=== PATIENT | female | born 1990 | race Caucasian/White ===

== ENCOUNTER 2020-08-06 21:47 | Emergency (ER) | payer MEDICAID, SELFPAY ==
[2020-08-06 21:47] VITALS: BP 135/76; PULSE 68; RESP 16; TEMP 35.9; O2SAT 97
[2020-08-06 21:48] VITALS: BP 135/76; PULSE 68; RESP 16; TEMP 35.9; O2SAT 97; BMI 22.1
--- NOTE | 2020-08-06 22:17 | ED.DCSUM_ITS ---
- ER Visit Summary Date of Service: 08/06/20 Chief Complaint: Atraumatic left-sided neck pain History of Present Illness: The patient is a 30 F No seen past medical history. She has atraumatic left-sided neck pain. This is occurred in the last 4 days. She did not know of any type of trauma she had. No falls or injuries. No prior history of neck pain. No prior neck surgery. At times it does slightly radiate to her left shoulder. There is no weakness or numbness. She denies any fever or chills. It is worse with rotating her neck to the left. Physical Examination: Young female no acute distress. Vital signs stable afebrile. HEENT exam unremarkable. Neck she is left paraspinal soft tissue tenderness over the trapezius. Also to the soft tissue between her shoulder blade and spine. She is able to flex and extend her neck. There is no meningismus. There is no lymphadenopathy. The spine itself is nontender. Pain is worse when she rotates her head to the left. There is no signs of trauma. No redness or warmth. No bruising. Lungs are clear equal and symmetrical bilaterally. Heart is regular rhythm. Chest wall nontender. Abdomen soft nontender. She is moving all 4 extremities. They are neurovascularly intact. She has equal symmetrical devulcanizer tender strength bilaterally. Dorsi plantar flexion intact. Back otherwise is nontender. Neurologically she is awake and alert with no focal motor or sensory deficits. She has normal range of motion of both arms and shoulders. Test Results: None Emergency Department Course and Treatment: Patient appears to have musculoskeletal neck pain such as myofascial strain with spasm. There is reproducibly tender. It does not appear to be an acute disc at this time. She and I did discuss that however. She will continue on her qdgv-hma-yvzdoea anti- inflammatories. 5 sourness. She will be given a prescription for Skelaxin. Treatment Plan: Skelaxin 4 times daily. NSAIDs. Hot shower, warm bath and massage. Follow-up if not improving. Disposition: dc Impression: Neck pain secondary to myofascial strain and spasm This note was generated with [employer] Intation software. It may contain incorrect words, spelling, and punctuation that were not noted in review of the chart prior to signing ED Disposition - Plan for ED Patient: Referrals: Care Physician,No Primary [Primary Care Provider] -
--- NOTE | 2020-08-06 22:21 | ED.DEP ---
ED Disposition - Plan for ED Patient: Disposition: Home or Assisted Living Instructions: ED Muscle Spasm Prescriptions: Metaxalone [Skelaxin] 800 mg PO 4X/DAY 7 Days #20 tab Prescription Printed Referrals: Santana Pena MD [STAFF PHYSICIAN] - 1 Week if not improving Additional Instructions: Hot shower, warm bath, whirlpool,, the size and anti-inflammatories. Skelaxin 3-4 times a day. Works as a muscle relaxant. Should start seeing results in 48 to 96 hours. Follow-up if not improving in 1 week. If develop weakness in your left arm return.
[2020-08-06] MEDS: Metaxalone 800 MG Tablet PO (22:51)
== END 2020-08-06 22:52 | disposition home or self-care (01) ==
PROVIDERS: Emergency Provider Emergency Medicine
DX: M54.2 Cervicalgia (principal); R25.2 Cramp and spasm
CPT/HCPCS: 99283

== ENCOUNTER 2021-09-25 23:07 | Emergency (ER) | payer MEDICAID, SELFPAY ==
[2021-09-25 23:09] VITALS: BP 138/85; PULSE 59; RESP 16; TEMP 36.1; O2SAT 99; BMI 25.8
--- NOTE | 2021-09-25 23:17 | RAD_ITS ---
HISTORY: atraumatic right chest pain EXAMINATION/TECHNIQUE: XR Chest 2 Views: 2 views COMPARISON: None FINDINGS: LINES/DEVICES: None. LUNGS: No pulmonary consolidation, mass, or edema. No pleural effusion or pneumothorax. MEDIASTINUM AND CARDIOVASCULAR STRUCTURES: Cardiac silhouette not enlarged. Central airways and mediastinal contour are unremarkable. BONES AND SOFT TISSUES: No acute bony abnormalities. RAD/Chest PA and Lateral IMPRESSION: No radiographic evidence of acute cardiopulmonary disease. at 2346 Reported and signed by: Ash Ortega MD Electronically Signed: Ash Ortega MD at 23:45 EST ,
--- NOTE | 2021-09-25 23:17 | ED.VIS.CHEST ---
HPI History of Present Illness Chief Complaint: Chest Other Detail of Chief Complaint: Right chest wall pain for a month. Informant: patient Onset/Context/Timing Onset: Month(s) Activity at onset: gradual Timing: Continuous Quality: Positive for Aching and Dull Location: Right Chest Current Severity: Mild Maximum Severity: Mild Worsened By: Movement of Torso; Not Worsened By Exertion, Eating, Palpation, Breathing and Coughing Relieved By: Remaining Still Associated Symptoms: Negative for Nausea, Vomiting, Diaphoresis, Dyspnea, Cough and Fever Narrative Narrative: 31-year-old female past medical history of anxiety. States she has had right rib cage pain for about a month. Denies any fall injury or trauma. No history of pneumothorax. No history of DVT or PE or family history of clots. Denies any recent travel, surgery or immobilization. No leg pain or swelling. No hemoptysis. She is not on any control pills. States the pains been ongoing for about a month. This started as a small area on her right chest wall. She denies fever chills or cough she denies shortness of breath. It is worse with movement. Saw her primary care physician was treated with naproxen without any significant relief. She has had no imaging. Prior Similar Symptoms: No Recent Illness/Hospitalization: No CVD Risk Factors: Negative for Hypertension, Diabetes, Hypercholesterolemia, Family History 1' </=55 and Smoking PE Risk Factors: Negative for Recent Travel/Surgery, Recent Immobilization, Prior DVT or PE, Cancer and OCP + Smoking + >/=35 TAD Risk Factors: Negative for Marfan's Syndrome and Hypertension [facility] Medical History (Updated 09/25/21 @ 23:[address] Ariel Upton MD) Anxiety Home Medications buspirone 7.5 mg PO TID 09/25/21 [History Last Taken Unknown] prednisone 40 mg PO DAILY 7 Days #14 tab 09/25/21 [Rx Last Taken Unknown] sertraline 100 mg PO DAILY 09/25/21 [History Last Taken Unknown] Allergy/AdvReac Type Severity Reaction Status Date / Time watermelon Allergy Hives Verified 09/25/21 23:08 Surgical History no surgical history Social History Smoking Status: Current every day smoker tobacco type: cigarettes ROS ROS ED ROS Narrative Denies any recent illness. Review of Systems ROS Unobtainable: Denies due to encephalopathy Constitutional Constitutional ED: Denies fever(s) Eyes Eyes: Denies none ENT ENT ED: Denies ear pain, rhinorrhea or sore throat Cardiovascular Cardiovascular: Reports as per HPI and chest pain Respiratory/Chest Respiratory/Chest: Denies cough, dyspnea or sputum Gastrointestinal Gastrointestinal: Denies abdominal pain, diarrhea, nausea or vomiting Genitourinary Genitourinary ED: Denies dysuria or hematuria Musculoskeletal Musculoskeletal: Denies arthralgias or myalgias Integumentary Denies abscess or rash Neurologic Neurologic: Denies headache(s) or weakness Psychiatric Psychiatric: Denies anxiety or depression Endocrine Endocrinology: Denies polydipsia or polyuria Hematologic/Lymphatic Hematologic/Lymphatic: Denies easy bleeding or easy bruising Allergic/Immunologic Allergic/Immunologic ED: Denies mouth swelling or urticaria EXAM Physical Exam Narrative Exam Narrative: 31-year-old female no acute distress. Vital signs stable afebrile. Pulse ox 9 9% on room air no hypoxia. HEENT exam unremarkable. Moist with memories. Neck nontender no JVD. No lymphadenopathy. Lungs clear to auscultation bilaterally. Heart regular rate and rhythm rate about 60 no murmur. Right chest wall is tender to palpation. Worse with movement. There is no crepitance or subcu air. No bruising. No bony abnormalities. Abdomen soft nontender normal bowel sounds no peritoneal signs. No right upper quadrant tenderness. Back nontender. Moving all 4 extremities. Calves are nontender without edema or cords. Neurologically she is awake and alert with no focal motor deficits. Const Vital Signs: 09/25/21 23:09 09/25/21 23:20 Temperature 97 F L Temperature Source Temporal Pulse Rate 59 L Respiratory Rate 16 Respiratory Pattern Normal Blood Pressure 138/85 H Blood Pressure Mean 102 Pulse Ox 99 Oxygen Delivery Method Room Air Positive well nourished and well developed; Negative for obese, cachectic, contractures or unkempt General Appearance ED: well developed and NAD; Negative for unkempt, cachectic, contractures or pallor Nutritional Appearance: Negative for cachectic or obese HEENT Reports moist mucous membranes normocephalic and atraumatic; Negative for trauma or tenderness Eyes PERRL and EOMs intact bilaterally General Eye ED: Negative for pale conjunctiva or scleral icterus Neck no lymphadenopathy, supple and no JVD General: Negative for tenderness Chest Wall inspection of chest normal and palpation of chest normal Chest: Negative for tenderness Resp normal respiratory effort and clear to auscultation bilaterally Resp Narrative: Right rib cage tenderness. No signs of trauma. No crepitance or subcu air. No bruising. Effort and Inspection: respiratory distress Auscultation: Negative for rales, rhonchi or wheezes Cardio regular rate, regular rhythm, S1 normal heart sound, S2 normal heart sound and no murmurs Rate: Negative for bradycardia or tachycardic Rhythm: Negative for abnormal rhythm GI normal to inspection, nondistended, normoactive bowel sounds, soft to palpation, non-tender, non-distended and no masses; Negative for hepatosplenomegaly Auscultation: Negative for hyperactive bowel sounds Back/Spine no CVA tenderness and no thoracic nor lumbar tenderness General Back: Negative for CVA tenderness Cervical Spine: Negative for cervical spine tenderness Extremity normal to inspection General Extremety ED: Negative for edema, pulses abnormal or tenderness General Extremity: Negative for edema or pulses abnormal Neuro oriented x3, CN's II-XII intact bilaterally and no sensory deficits noted Sensorium / Orientation: awake, alert, oriented to person, oriented to place and oriented to time; Negative for confused, lethargic or stuporous Motor Exam: strength 5/5 throughout; Negative for general weakness or strength abnormal Psych mental status grossly normal Appearance: Negative for unkempt Attitude: No agitated Mood & Affect: Negative for depressed or tearful Skin no rashes or lesions noted and no wounds General Skin Exam: Negative for jaundice or pallor Rashes: No rashes noted Trauma: Negative for abrasion MDM MDM MDM Narrative Medical decision making narrative: 31-year-old female with right chest wall pain for approximately a month. Exam is consistent reproducible pain. Chest x-ray AP and lateral being obtained. She has no risk factors for pulmonary emboli. Otherwise exam unremarkable. Repeat exam at 11:37 PM unchanged. I went over the x-ray with the patient. She will be discharged home on prednisone and follow-up if not improving. Radiography Chest X-Ray - ED: 2 View, Read by ED Physician, Heart, Lungs, Mediastinum, Bony Structures, No Acute Disease and Right Infiltrate Diagnostic Testing: Chest x-ray, 2 views, AP and lateral interpreted by myself shows no acute abnormality. Normal cardiac silhouette. Normal lung bell. No bony abnormalities. No infiltrates. No pneumothorax. Discharge Plan Triage Chief Complaint: Chest Other ED Provider: Ariel Upton Dx/Rx/DC Orders Clinical Impression: Chest wall muscle strain Instructions: ED Strain Chest Wall Prescriptions: New prednisone 20 mg tablet 40 mg PO DAILY 7 Days Qty: 14 RF: 0 No Action sertraline 100 mg tablet 100 mg PO DAILY RF: 0 buspirone 7.5 mg tablet 7.5 mg PO TID RF: 0 Primary Care Provider: Care Physician,No Primary Referrals: Care Physician,No Primary [Primary Care Provider] - Activity Restrictions/Additional Instructions: Prednisone daily. If you have inflammation of your chest wall that should improve.. Ice to your chest wall. Follow-up with your doctor if not improving and return if worse. Your chest x-ray exam was normal Disposition Disposition: Home, Self Care
[2021-09-25] MEDS: predniSONE 20 MG Tablet 40 MG PO (23:52)
== END 2021-09-25 23:52 | disposition home or self-care (01) ==
LOC: ED 23:46
PROVIDERS: Emergency Provider Emergency Medicine; Visit Provider Emergency Medicine
DX: S29.011A Strain of muscle and tendon of front wall of thorax, initial encounter (principal); F17.210 Nicotine dependence, cigarettes, uncomplicated; F41.9 Anxiety disorder, unspecified
CPT/HCPCS: 71046; 99283

== ENCOUNTER 2022-07-09 18:45 | Outpatient (CLI) | payer MEDICAID, SELFPAY ==
[2022-07-09 18:55] VITALS: BMI 34.2
[2022-07-09 18:58] VITALS: BP 126/68; PULSE 83; PULSE 95; TEMP 36.4; O2SAT 99
[2022-07-09 19:46] LABS: Color, Urine Yellow (Yellow); Glucose, Dipstick Normal (Normal); Ketone-Dipstick Negative (Negative); Leukocyte Esterase-Dipstick Negative /ul (Negative); Nitrite-Dipstick Negative (Negative); Occult Blood-Urine Negative /ul (Negative); Protein-Dipstick Negative (Negative); Urine Bilirubin Dipstick Negative (Negative); Urine Clarity Clear (Clear); Urine Urobilinogen Normal (Normal); Urine pH 6.5 (5.0 - 8.0)
[2022-07-09] MEDS: LACTATED RINGERS 500 ML 999 ML IV (20:20)
--- NOTE | 2022-07-09 20:36 | OB.TRI.NOTE ---
HPI - General HPI Narrative JAIDEN POOL, is a 31 F at 35 weeks gestation who presents to triage with contractions that started earlier this evening. Patient denies any loss of fluid or vaginal bleeding. Positive movement. No history of PTL. Maternal Data Information EDVIN Calculator Estimated Delivery Date Method Current WG Current Estimate 08/13/22 Manual 35w 0d PFSH PFSH Medical History (Updated 07/09/22 @ 20:52 by Mayra Espinal CNM) Anxiety Home Medications sertraline 100 mg tablet 100 mg PO DAILY anxiety 09/25/21 [History Last Taken 07/09/22 10:00] ondansetron 4 mg PO/SL PRN PRN Nausea 07/09/22 [History Last Taken 07/08/22 09:00] vit 30-jiau-imjcf-dha 1 tab PO/SL DAILY 07/09/22 [History Last Taken 07/09/22 10:00] Allergy/AdvReac Type Severity Reaction Status Date / Time watermelon Allergy Mild Hives Verified 07/09/22 19:05 cheese whiz Allergy Rash Uncoded 07/09/22 19:40 Social History Smoking Status: Current every day smoker tobacco type: cigarettes ROS Eyes Eyes: Denies blurry vision Cardiovascular Cardiovascular: Reports none; Denies chest pain at rest, chest pain with activity or dizziness Respiratory/Chest Respiratory/Chest: Denies cough or dyspnea Gastrointestinal Gastrointestinal: Reports none and other; Denies diarrhea or vomiting Genitourinary Genitourinary: Denies dysuria Musculoskeletal Musculoskeletal: Reports none Integumentary Integumentary: Reports none; Denies rash Neurologic Neurologic: Denies dizziness, headache(s) or other visual disturbances Psychiatric Psychiatric: Reports none Physical Exam Const alert and no apparent distress General Appearance: cooperative Orientation / Consciousness: awake Exam Limitations: no limitations HEENT normocephalic Eyes General Eye: normal appearance of both eyes Neck full ROM Chest inspection of chest normal Resp normal respiratory effort and normal air movement Effort and Inspection: symmetric chest movement Auscultation: clear to auscultation bilaterally Cardio regular rate GI soft to palpation, non-tender and non-distended Inspection: and other Back/Spine normal ROM Extremity full ROM, normal capillary refill and no calf tenderness Skin no rashes or lesions noted Neuro oriented x3 and CN's II-XII intact bilaterally Psych mental status grossly normal NST FHR Rate Baby A Baseline: 125 Variability:: Moderate Accelerations:: 15 x 15 Decelerations:: None NST Reactive:: Yes FHR Category:: Category I Uterine Activity:: TOCO reading 2-4 minutes, palpate mild and relaxed in between Assessment & Plan (1) 35 weeks gestation of : (2) Uterine contractions: (3) Anxiety: PLAN: Plan NST reactive CE- FT/ Thick/ Posterior- unchanged from initial exam UA- negative IV fluids- 500 cc bolus given- Patient stated feeling better and contractions have spaced out labor precautions reviewed D/C home with follow up in office Dr. Pope notified
[2022-07-09 20:44] VITALS: PULSE 64; O2SAT 97
[2022-07-09] MEDS: Lactated Ringers 1,000 ML 250 ML IV (20:52)
== END 2022-07-09 22:15 | disposition home or self-care (01) ==
LOC: WPOUT 18:48 → WP 18:48
PROVIDERS: Visit Provider Advanced Practice Midwife
DX: O47.03 False labor before 37 completed weeks of gestation, third trimester (principal); F17.210 Nicotine dependence, cigarettes, uncomplicated; F41.9 Anxiety disorder, unspecified; O99.343 Other mental disorders complicating pregnancy, third trimester; O99.333 Smoking (tobacco) complicating pregnancy, third trimester; Z3A.35 35 weeks gestation of pregnancy
CPT/HCPCS: 96360; 59025; 59050; 81002; 99218; J7120; G0378

== ENCOUNTER 2022-07-17 16:30 | Outpatient (CLI) | payer MEDICAID, SELFPAY ==
[2022-07-17 16:43] VITALS: PULSE 118; O2SAT 97
[2022-07-17 16:44] VITALS: TEMP 36.6; O2SAT 97
[2022-07-17 16:45] VITALS: BP 123/63; PULSE 85
[2022-07-17 16:55] VITALS: BMI 34.5
--- NOTE | 2022-07-18 00:02 | OB.TRI.NOTE ---
HPI - General HPI Narrative JAIDEN POOL, is a 32 F who presents Maternal Data Information EDVIN Calculator Estimated Delivery Date Method Current WG Current Estimate 08/13/22 Manual 36w 2d Final EDVIN: 08/13/22 Gestational age: 36 2/7 PFSH [facility] [place] Medical History (Updated 07/18/22 @ 00:[address] Sasha Pope MD) Anxiety Home Medications sertraline 100 mg tablet 200 mg PO DAILY anxiety 09/25/21 [History Last Taken 07/17/22 08:00] ondansetron 4 mg PO/SL PRN PRN Nausea 07/09/22 [History Last Taken 07/08/22 09:00] vit 19-ycve-lxrxr-dha 1 tab PO/SL DAILY 07/09/22 [History Last Taken 07/17/22 08:00] Allergy/AdvReac Type Severity Reaction Status Date / Time watermelon Allergy Mild Hives Verified 07/09/22 19:05 amoxicillin AdvReac Mild Diarrhea Verified 07/17/22 16:58 cheese whiz Allergy Rash Uncoded 07/09/22 19:40 Social History Smoking Status: Current every day smoker tobacco type: cigarettes NST FHR Rate Baby A Baseline: 135 Variability:: Moderate Accelerations:: 15 x 15 Decelerations:: None NST Reactive:: Yes FHR Category:: Category I Uterine Activity:: irreg ctxs Assessment & Plan (1) Threatened labor: PLAN: No evidence of active labor. Reactive nonstress test. Follow-up in the office or return as needed. (2) 36 weeks gestation of :
== END 2022-07-17 17:40 | disposition home or self-care (01) ==
LOC: WPOUT 16:36 → WP 16:36
PROVIDERS: Visit Provider Advanced Practice Midwife
DX: O47.03 False labor before 37 completed weeks of gestation, third trimester (principal); O99.343 Other mental disorders complicating pregnancy, third trimester; O99.333 Smoking (tobacco) complicating pregnancy, third trimester; F41.9 Anxiety disorder, unspecified; F17.210 Nicotine dependence, cigarettes, uncomplicated; Z3A.36 36 weeks gestation of pregnancy
CPT/HCPCS: 59025; 59050; 99218; G0378

== ENCOUNTER 2022-08-07 06:50 | Inpatient (IN) | payer MEDICAID, SELFPAY ==
[2022-08-07] VITALS (50 sets, daily range): BP systolic 106–135; BP diastolic 53–80; PULSE 65–110; RESP 18; TEMP 36.2–36.5; O2SAT 90–100; BMI 35.4
[2022-08-07] MEDS: Lactated Ringers 1,000 ML 50 ML IV (07:40)
[2022-08-07 08:22] LABS: Absolute Lymphocyte Count 1.22 X10^3/uL (0.83-4.51); Absolute Neutrophil Count 8.2 X10^3/uL (2.0-7.7); Basophil# 0.03 X10^3/uL; Basophil% 0.3 % (0-1); Eosinophil# 0.04 X10^3/uL; Eosinophils% 0.4 % (0-5); Hematocrit 35.2 % (37-47); Hemoglobin 11.8 g/dL (12.0-15.0); Lymphocyte # 1.22 X10^3/ul (0.83-4.51); Lymphocyte % 11.6 % (19-41); Mean Corp Hgb Conc 33.5 g/dL (32-36); Mean Corpuscular Hgb 29.8 pg (27.0-32.0); Mean Corpuscular Volume 88.9 fL (81-99); Mean Platelet Vol. 9.2 fl (6.2-12.0); Monocyte# 0.82 X10^3/uL; Monocyte% 7.8 % (0-10); NRBC Flagged by Analyzer 0 % (0-5); Neutrophil # 8.24 X10^3/uL (2.7-7.7); Neutrophil % 78.3 % (47-70); Platelet Count 236 K/mm3 (150-450); RBC Distribution Width CV 13.3 % (11.6-14.6); RBC Distribution Width SD 43.8 fl (35.1-43.9); Red Blood Count 3.96 M/mm3 (4.2-5.4); White Blood Count 10.5 K/mm3 (4.4-11.0)
[2022-08-07] MEDS: Oxytocin 15 Units/NS 250ml 15 UNITS/250 ML IV.SOLN 2 UNITS IV (09:15)
[2022-08-07] MEDS: LACTATED RINGERS 500 ML 999 ML IV ×2 (09:55→19:15)
[2022-08-07] MEDS: fentaNYL-bupivacaine (epidural) 100 ML BAG EPIDURAL ×3 (10:13→19:10)
--- NOTE | 2022-08-07 13:09 | HP.PCM.OB_ITS ---
HPI - General General Date of Admission: 08/07/22 Date of Service: 08/07/22 Chief Complaint: induction of labor HPI Narrative JAIDEN POOL, is a 32 2 para 1 with a EDC of 08/13/2022 presents for induction of labor. Estimated weight by ultrasound last week is less than 4500 g. has been complicated to date by an abdominal cyst noted on the anatomy scan the fetus. Follow-up ultrasound of the fetus was normal and t he gallbladder was visualized and was normal. is also been complicated by unstable lie. Fetus was vertex then breech then vertex again. She was seen in the office on 08/06/2022 the fetus was vertex and she was scheduled for induction of labor. Maternal Data Information EDVIN Calculator 2 Estimated Delivery Date Method Current WG Current Estimate 08/13/22 Manual 39w 1d Final EDVIN: 08/13/22 Gestational age: 39 1/7 [facility] Medical History (Updated 08/07/22 @ 13:[address] Sasha Pope MD) Anxiety Home Medications sertraline 100 mg tablet 200 mg PO DAILY anxiety 09/25/21 [History Last Taken 08/06/22 08:00] ondansetron 4 mg PO/SL PRN PRN Nausea 07/09/22 [History Last Taken 07/08/22 09:00] vit 78-fnxe-xsukk-dha 1 tab PO/SL DAILY 07/09/22 [History Last Taken 08/07/22 06:00] hydroxyzine HCl 25 mg tablet 25 mg PO TID PRN anxiety 08/07/22 [History Last Taken Unknown] Allergy/AdvReac Type Severity Reaction Status Date / Time watermelon Allergy Mild Hives Verified 07/09/22 19:05 amoxicillin AdvReac Mild Diarrhea Verified 07/17/22 16:58 cheese whiz Allergy Rash Uncoded 07/09/22 19:40 Social History Smoking Status: Light Smoker (<10/day) History Elective abortions Hx Para 1 Spontaneous abortions Hx # Term Pregnancies Ectopic pregnancies Hx # Pregnancies Multiple births # of living children ROS Constitutional Constitutional: Denies fatigue, fever(s) or malaise Eyes Eyes: Denies change in vision ENT HEENT: Denies dizziness or headache(s) Cardiovascular Cardiovascular: Denies chest pain, dyspnea or lightheadedness Respiratory/Chest Respiratory/Chest: Denies cough or dyspnea Gastrointestinal Gastrointestinal: Denies change in bowel habits Genitourinary Genitourinary: Denies burning urination or genital lesions Integumentary Integumentary: Denies rash Neurologic Neurologic: Denies confusion, dizziness, headache(s), numbness or weakness Vital Signs Vital Signs Vital Signs: 08/07/22 07:30 08/07/22 07:30 08/07/22 09:36 Temperature Temperature Source Pulse Rate 100 Blood Pressure 122/71 H 128/63 H BP Systolic 122 128 BP Diastolic 71 63 Pulse Ox 08/07/22 09:36 08/07/22 09:36 08/07/22 09:36 Temperature Temperature Source Temporal Pulse Rate 74 Blood Pressure BP Systolic BP Diastolic Pulse Ox 98 08/07/22 09:36 08/07/22 10:08 08/07/22 10:08 Temperature 97.3 F L Temperature Source Pulse Rate 80 Blood Pressure BP Systolic BP Diastolic Pulse Ox 98 08/07/22 10:08 08/07/22 10:11 08/07/22 10:11 Temperature Temperature Source Pulse Rate 82 Blood Pressure 128/63 H 135/71 H BP Systolic 128 135 BP Diastolic 63 71 Pulse Ox 08/07/22 10:13 08/07/22 10:13 08/07/22 10:21 Temperature Temperature Source Pulse Rate 75 80 Blood Pressure BP Systolic BP Diastolic Pulse Ox 99 08/07/22 10:21 08/07/22 10:21 08/07/22 10:21 Temperature Temperature Source Pulse Rate 82 Blood Pressure 112/66 BP Systolic 112 BP Diastolic 66 Pulse Ox 98 08/07/22 10:26 08/07/22 10:26 08/07/22 10:26 Temperature Temperature Source Pulse Rate 93 Blood Pressure 119/67 BP Systolic 119 BP Diastolic 67 Pulse Ox 98 08/07/22 10:31 08/07/22 10:31 08/07/22 10:31 Temperature Temperature Source Pulse Rate 86 Blood Pressure 112/67 BP Systolic 112 BP Diastolic 67 Pulse Ox 97 08/07/22 10:31 08/07/22 10:36 08/07/22 10:36 Temperature Temperature Source Pulse Rate 77 91 Blood Pressure BP Systolic BP Diastolic Pulse Ox 98 08/07/22 10:36 08/07/22 10:36 08/07/22 10:41 Temperature Temperature Source Pulse Rate 82 Blood Pressure 111/67 111/64 BP Systolic 111 111 BP Diastolic 67 64 Pulse Ox 08/07/22 10:41 08/07/22 10:41 08/07/22 10:47 Temperature Temperature Source Pulse Rate 83 Blood Pressure 111/75 BP Systolic 111 BP Diastolic 75 Pulse Ox 98 08/07/22 10:47 08/07/22 11:18 08/07/22 11:18 Temperature Temperature Source Pulse Rate 93 73 Blood Pressure 120/69 BP Systolic 120 BP Diastolic 69 Pulse Ox 08/07/22 11:48 08/07/22 11:48 08/07/22 12:37 Temperature Temperature Source Pulse Rate 78 Blood Pressure 121/73 H 117/62 BP Systolic 121 117 BP Diastolic 73 62 Pulse Ox 08/07/22 12:37 08/07/22 12:37 08/07/22 12:37 Temperature Temperature Source Temporal Pulse Rate 65 Blood Pressure BP Systolic BP Diastolic Pulse Ox 98 08/07/22 12:37 Temperature 97.7 F L Temperature Source Pulse Rate Blood Pressure BP Systolic BP Diastolic Pulse Ox Weight Weight: 96.7 kg Body Mass Index (BMI) 35.4 Physical Exam Const alert and no apparent distress General Appearance: cooperative HEENT normocephalic Resp normal respiratory effort Cardio regular rate GI soft to palpation GI Narrative: gravid, nontender, appropriate for gestational age Extremity no calf tenderness General Extremity: edema Skin no wounds Rashes: No rashes noted Psych activity/motor behavior normal Labs Labs Labs: Blood Type O POSITIVE Antibody Screen NEGATIVE Hct 35.2 % (37-47) L Hgb 11.8 g/dL (12.0-15.0) L Assessment & Plan (1) 39 weeks gestation of : PLAN: Multigravida with unstable lie. Risk-benefit and alternatives to induction labor him discussed with the patient and her questions were answered to her satisfaction she desires to proceed. Brief ultrasound performed this morning which confirms vertex. When I examined the patient cervix this morning she was 1-1/2 cm 50% effaced and -3 station. Artificial rupture membranes was performed because I could palpate the skull. Moderate amount of clear fluid returned in the skull settled down against the cervix. Estimated weight weight is less than 4500 g by ultrasound and clinically and pelvis clinically adequate to expect vaginal delivery. May have routine pain relief measures. We will proceed with Pitocin and artificial rupture membranes i nduction.
[2022-08-07] MEDS: Lactated Ringers 1,000 ML 200 ML IV ×2 (13:55→19:05)
[2022-08-07] MEDS: Amnioinfusion- 0.9% NS 1,000 ML IV.SOLN. 1000 ML INTRA-UTER (18:45)
--- NOTE | 2022-08-07 21:12 | OP.PCM_ITS ---
Assessment & Plan (1) 39 weeks gestation of : (2) Prolonged heart deceleration: (3) Vacuum extractor delivery, delivered: (4) Delivery outcome of liveborn infant: Maternal Data Information EDVIN Calculator Estimated Delivery Date Method Current WG Current Estimate 08/13/22 Manual 39w 1d Final EDVIN: 08/13/22 Gestational age: 39 1/7 Vaginal Delivery Maternal Presentation Maternal Presentation: Medically Indicated Induction (unstable lie) Type of Induction: Pitocin and Amniotomy Operative Information Date of Procedure: 08/07/22 Pre-Operative Diagnosis: prolonged decelerations Post-Operative Diagnosis: same Surgery / Procedure Performed: Vacuum Assisted Vaginal Delivery (low) Type of Anesthesia: Epidural Anesthesiologist: Aleida Nieves Special Medications: none Drain: Gross to straight drain Estimated Blood Loss: 300 Time of Delivery: 20:56 Findings Description of Procedure: Patient had prolonged decelerations. She had a prolonged when that we cannot get to recovery in the room with resuscitative measures. I was present. Patient was taken to the operating room. When arrived to the operating room the heart tones recovered to the 110s to 130s. She continued to have decelerations to the 60s and 70s during contractions. We are able to get it recovered to 90s to 100s in between. When she arrived in the operating room as we are getting her on the operating table I checked her and she was in anterior lip. On the next contraction I asked the patient to push and she was able to reduce the anterior lip and she was complete and +2. She then pushed with 2 more contractions as we are getting her set up for vaginal delivery. Head was then plus 3 out of 5 station and position was RUMA. I discussed with the patient if heart tones continue to have prolonged decelerations option of vacuum- assisted vaginal delivery and patient consented. The vacuum was placed on the flexion point and I pulled with 1 contraction with 1 pop-off to +5 station. Patient pushed spontaneously with the next contraction and she was labia. heart tones were again in the 70s. The vacuum was replaced and on the next contraction I pulled to and remove the vacuum without another pop-off. A male infant was delivered RUMA over an intact perineum. A tight nuchal cord was reduced. The remainder the was delivered with maternal pushing and gentle traction only in less than 15 seconds. The Pitocin infusion was initiated for active management of the third stage. The cord was clamped and cut rather immediately because the had good tone and some respiratory effort but was not completely vigorous. The infant was attended to by the awaiting team and hospice liaison. The placenta was delivered spontaneously and intact. The cervix and vagina were intact. The first-degree vaginal lacerations bilaterally were superficial and repaired with 3-0 Vicryl suture in a running standard fashion. Sponge and needle counts were correct. A vaginal sweep was completed by me. Presentation: Vertex and RUMA Amniotic Membrane Rupture Type: Artificial Amniotic Fluid Description: Clear Placental Delivery Description: Spontaneous Placenta Disposition: [facility] Cord Vessel Description: 3 Vessels Cord Entanglement: Around neck x 1, tight Nuchal Cord Compression: With compression Cord Gases: ABG and VBG A Gender: Male (Lane) Delayed Cord Clamping: No Post Vaginal Delivery Medications Given After Delivery: IV Pitocin Episiotomy Description: None Laceration: 1st degree (vaginal) Complication Complications: None
[2022-08-07] MEDS: Oxytocin 15 Units/NS 250ml 15 UNITS/250 ML IV.SOLN 83 UNITS IV (21:24)
[2022-08-08] VITALS (8 sets, daily range): BP systolic 119–135; BP diastolic 60–66; PULSE 67–81; RESP 16–18; TEMP 36.1–37.1; O2SAT 96–97
[2022-08-08] MEDS: Acetaminophen 500 MG Tablet 1000 MG PO (02:23)
[2022-08-08] MEDS: Ibuprofen 600 MG Tablet PO ×3 (06:00→17:40)
--- NOTE | 2022-08-08 08:25 | PCM.PN.OB ---
Subjective Subjective Patient seen at bedside. Feeling good. Ambulating and voiding without difficulty. with minimal support. Denies any pain. Desires discharge home tomorrow morning. Objective Data Objective Data Vital Signs: Vital Signs Temp Pulse Resp BP Pulse Ox O2 Del Method O2 Flow Rate 97.6 F L 72 16 119/60 97 Room Air 10 08/08/22 08:11 08/08/22 08:12 08/08/22 08:11 08/08/22 08:11 08/08/22 08:12 08/08/22 08:11 08/07/22 20:00 Oxygen Flow Rate (L/min) 10 Oxygen Delivery Method Room Air Weight: 213 lb 2.992 oz Body Mass Index (BMI) 35.4 Intake & Output: Intake and Output for Last 24 Hours 08/06/22 08/07/22 08/08/22 23:59 23:59 23:59 Intake Total 4175.83 / 4175.83 250 / 250 Output Total 1700 / 1700 100 / 100 Balance 2475.83 / 2475.83 150 / 150 Lab / Micro Data Result Diagrams: 08/07/22 08:00 Labs: Laboratory Results - last 24 hr 08/07/22 08:00: Blood Type O POSITIVE, Antibody Screen NEGATIVE ROS Eyes Eyes: Denies blurry vision, change in vision or spots in vision ENT HEENT: Denies dizziness or headache(s) Cardiovascular Cardiovascular: Denies abdominal pain, chest pain or dyspnea Respiratory/Chest Respiratory/Chest: Denies cough, dyspnea, shortness of breath at rest or shortness of breath with exertion Gastrointestinal Gastrointestinal: Denies abdominal pain, diarrhea or vomiting Genitourinary Genitourinary: Denies change in urinary stream, difficulty urinating or dysuria Musculoskeletal Musculoskeletal: Reports none Integumentary Integumentary: Denies rash Neurologic Neurologic: Denies dizziness, headache(s), memory loss or weakness Physical Exam Const alert and no apparent distress General Appearance: cooperative and comfortable Exam Limitations: no limitations HEENT normocephalic Eyes General Eye: normal appearance of both eyes Neck full ROM General: normal visual inspection Chest Chest: symmetrical chest wall rise Resp normal respiratory effort and normal air movement Effort and Inspection: symmetric chest movement Auscultation: clear to auscultation bilaterally Cardio regular rate and regular rhythm GI normal to inspection, nondistended, normoactive bowel sounds Back/Spine normal ROM Extremity full ROM and no calf tenderness General Extremity: normal exam except as noted Skin no rashes or lesions noted Neuro CN's II-XII intact bilaterally Psych mental status grossly normal Assessment & Plan (1) Delivery outcome of liveborn : (2) Vacuum extractor delivery, delivered: (3) Care and examination of lactating mother: (4) Laceration, obstetrical, first degree: PLAN: Plan PPD 1 Vacuum assisted delivery Routine care Pain control support Anticipate discharge home tomorrow
[2022-08-08] MEDS: Sertraline 100 MG Tablet 200 MG PO (10:04)
[2022-08-09 02:56] VITALS: BP 124/79; PULSE 80
[2022-08-09 02:57] VITALS: BP 124/79; PULSE 80; RESP 18
[2022-08-09] MEDS: Ibuprofen 600 MG Tablet PO (03:03)
[2022-08-09 08:48] VITALS: BP 128/64; PULSE 67
[2022-08-09 08:50] VITALS: BP 124/64; PULSE 67; RESP 16; TEMP 36.4
--- NOTE | 2022-08-09 09:01 | PCM.PN.OB ---
Subjective Subjective No complaintd Objective Data Objective Data Vital Signs: Vital Signs Temp Pulse Resp BP Pulse Ox O2 Del Method O2 Flow Rate 97.6 F L 67 16 124/64 H 97 Room Air 10 08/09/22 08:50 08/09/22 08:50 08/09/22 08:50 08/09/22 08:50 08/08/22 08:12 08/09/22 08:50 08/07/22 20:00 Oxygen Flow Rate (L/min) 10 Oxygen Delivery Method Room Air Weight: 213 lb 2.992 oz Body Mass Index (BMI) 35.4 Intake & Output: Intake and Output for Last 24 Hours 08/07/22 08/08/22 08/09/22 23:59 23:59 23:59 Intake Total 4175.83 / 4175.83 250 / 250 Output Total 1700 / 1700 100 / 100 Balance 2475.83 / 2475.83 150 / 150 Lab / Micro Data Result Diagrams: 08/07/22 08:00 Physical Exam Const alert, oriented x3 and no apparent distress HEENT normocephalic GI soft to palpation, non-tender and non-distended GI Narrative: fundus firm, mid & below umbilicus Extremity normal to inspection and no calf tenderness Assessment & Plan (1) Vacuum extractor delivery, delivered: COMMENT: PPD#1 PLAN: Plan D/c home
--- NOTE | 2022-08-09 09:04 | DCINST_ITS ---
Discharge Instructions Diet Discharge Diet: No restrictions Activity Discharge Activity: May Shower May resume sexual activity in: 6 weeks Weight Bearing Status: Weight bearing as tolerated Dressing / Incision Call your doctor if you observe: Fever of 101 or Higher, Coldness, Increased Pain, Change in Color, Inability to urinate, Inability to have a bowel movement, Using more than 1 pad per hour, Shortness of breath, Dizziness, Fainting spells, Chest pain, Increased palpitations (irregular heartbeat), Calf discomfort and Uncontrolled pain Follow Up Care Please Follow Up With: Sasha Pope MD When: Follow up in 2 and 6 weeks for visits. Test Results: Test results from this visit will be discussed in further detail at your follow- up appointment, if applicable. Discharge Plan Admission Admit Date/Time: 08/07/22 06:50 Primary Reason for Your Visit: Vaginal delivery Attending Provider: Sasha Pope Primary Care Provider: TIERRA HOOD Discharge Orders/Prescriptions Prescriptions: New acetaminophen 500 mg Tablet 1,000 mg PO Q6H PRN PRN (Reason: Pain 1-10 Or Fever) Qty: 0 0RF ibuprofen 600 mg Tablet 600 mg PO Q6H PRN PRN (Reason: Pain Score 1-3) Qty: 0 0RF Continued sertraline 100 mg tablet 200 mg PO DAILY Label Comments: TAKE 1 TABLET BY MOUTH ONCE DAILY ondansetron tablet 4 mg PO/SL PRN PRN (Reason: Nausea) vit 19-tgbz-orvyh-dha tablet 1 tab PO/SL DAILY hydroxyzine HCl 25 mg Tablet 25 mg PO TID PRN (Reason: anxiety) Referrals / Follow Up: TIERRA HOOD [Other] Disposition Disposition (needs filled in before D/C Order can be placed): Home, Self Care
[2022-08-09] MEDS: Sertraline 100 MG Tablet 200 MG PO (10:04)
== END 2022-08-09 11:30 | disposition home or self-care (01) | DRG 560 ==
PROVIDERS: Admitting Provider Obstetrics & Gynecology; Referring Provider Obstetrics & Gynecology; Visit Provider Obstetrics & Gynecology
DX: O76 Abnormality in fetal heart rate and rhythm complicating labor and delivery (principal); Z37.0 Single live birth; F17.200 Nicotine dependence, unspecified, uncomplicated; O69.2XX0 Labor and delivery complicated by other cord entanglement, with compression, not applicable or unspecified; O70.0 First degree perineal laceration during delivery; O99.334 Smoking (tobacco) complicating childbirth; Z3A.39 39 weeks gestation of pregnancy; O32.0XX0 Maternal care for unstable lie, not applicable or unspecified
CPT/HCPCS: 59025; 59050; 85025; 86850; 86900; 86901; 99218; J7030; J7120; G0378

== ENCOUNTER 2023-12-11 12:25 | Outpatient (CLI) | payer MEDICAID, SELFPAY ==
[2023-12-11 12:33] VITALS: RESP 20; TEMP 36.7; O2SAT 98
[2023-12-11 12:41] VITALS: BMI 29.7
--- NOTE | 2023-12-11 12:57 | US_ITS ---
INDICATION: ovaries/appendix 27.4 week -- RLQ/LLQ EXAMINATION: US Abdomen Limited (quadrant) TECHNIQUE: Graham-scale and color Doppler imaging was performed of the ovaries and right lower abdominal quadrant.. COMPARISON: None. Findings: RIGHT OVARY: Measures 3.8 x 2.9 x 2.6 cm. Normal. LEFT OVARY: Measures 3.7 x 2.8 x 2.7 cm. Normal. RLQ: Non-visualization of the appendix. US/Abdomen Limited IMPRESSION: Normal ovaries. Non-visualization of the appendix. Electronically Signed: Nnamdi Aj MD at 16:55 EDT ,
--- NOTE | 2023-12-11 13:02 | US_ITS ---
PROCEDURE: RENAL ULTRASOUND - COMPLETE REASON FOR EXAM: Female, 33 years old. Right lower quadrant pain TECHNIQUE: Ultrasound evaluation of the bilateral kidneys was performed with real-time ultrasonography and static grayscale imaging. COMPARISON: None. FINDINGS: RIGHT KIDNEY: Normal location of the right kidney which is normal in size. The right kidney measures 12.3 x 4.7 x 5 cm. There is a normal cortex of the right kidney. The renal cortex measures 1.4 cm. There is no right renal mass or cyst. There are no right renal calculi. There is moderate hydronephrosis of the right kidney. DISTAL RIGHT URETER: There is non-visualization of the distal right ureter. There is no demonstrated right ureterovesical junction calculus. There is a visualized right ureteral jet. LEFT KIDNEY: Normal location of the left kidney which is normal in size. The left kidney measures 11 x 4 x 4.8 cm. There is a normal cortex of the left kidney. The renal cortex measures 1.5 cm. There is no left renal mass or cyst. There are no left renal calculi. There is no left hydronephrosis. DISTAL LEFT URETER: There is non-visualization of the distal left ureter. There is no demonstrated left ureterovesical junction calculus. There is a visualized left ureteral jet. BLADDER: The distended urinary bladder has a volume of 651 ml. There is a normal wall thickness of the distended urinary bladder. There is no demonstrated mass within the urinary bladder. There is no demonstrated bladder calculi. US/Kidney and Bladder IMPRESSION: Moderate right hydronephrosis which may or may not be related to . Electronically Signed: Raymond Cedeno MD at 15:49 EDT ,
[2023-12-11] MEDS: 0.9% Saline Lock 10 ML Syringe IV (13:25)
[2023-12-11 13:43] LABS: Absolute Lymphocyte Count 1.53 X10^3/uL (0.83-4.51); Absolute Neutrophil Count 6.6 X10^3/uL (2.0-7.7); Basophil# 0.02 X10^3/uL; Basophil% 0.2 % (0-1); Eosinophil# 0.05 X10^3/uL; Eosinophils% 0.6 % (0-5); Hematocrit 37.1 % (37-47); Hemoglobin 13.1 g/dL (12.0-15.0); Lymphocyte # 1.53 X10^3/ul (0.83-4.51); Lymphocyte % 17.4 % (19-41); Mean Corp Hgb Conc 35.3 g/dL (32-36); Mean Corpuscular Hgb 31.6 pg (27.0-32.0); Mean Corpuscular Volume 89.6 fL (81-99); Mean Platelet Vol. 9.2 fl (6.2-12.0); Monocyte# 0.59 X10^3/uL; Monocyte% 6.7 % (0-10); NRBC Flagged by Analyzer 0 % (0-5); Neutrophil # 6.57 X10^3/uL (2.7-7.7); Neutrophil % 74.6 % (47-70); Platelet Count 194 K/mm3 (150-450); RBC Distribution Width CV 13.2 % (11.6-14.6); RBC Distribution Width SD 43.4 fl (35.1-43.9); Red Blood Count 4.14 M/mm3 (4.2-5.4); White Blood Count 8.8 K/mm3 (4.4-11.0)
[2023-12-11 13:44] LABS: Color, Urine Yellow (Yellow); Glucose, Dipstick Normal (Normal); Ketone-Dipstick Negative (Negative); Leukocyte Esterase-Dipstick 25 /ul (Negative); Nitrite-Dipstick Negative (Negative); Occult Blood-Urine Negative /ul (Negative); Protein-Dipstick 15 mg/dl (Negative); Specific Gravity, Urine 1.015 (1.002-1.030); Urine Bilirubin Dipstick Negative (Negative); Urine Clarity Sl. Cloudy (Clear); Urine Urobilinogen Normal (Normal); Urine pH 6.5 (5.0 - 8.0)
[2023-12-11 13:53] LABS: Bacteria 2+ /hpf (None Seen); Mucous, Urine RARE /hpf (<or=2+); Red Blood Cells-Urine 0-5 SEEN /hpf (0-5); Squamous Epithelial Cells - UA 5-10 SEEN /hpf (5-10); White Blood Cells 0-5 SEEN /hpf (0-5)
[2023-12-11 16:44] VITALS: BP 116/60; PULSE 62; RESP 18; TEMP 36.7
--- NOTE | 2023-12-11 19:59 | OB.TRI.NOTE ---
HPI - General General Date of Admission: 12/11/23 Date of Service: 12/11/23 Chief Complaint: right abdominal pain HPI Narrative JAIDEN POOL, is a 33 F who presents right sided abdominal pain. Denies LOF, bleeding or contractions. No back or flank pain. No trauma. Tylenol and a warm shower helped yesterday but is not helping today. No urinary symptoms. Reviewed renal and abdominal ultrasound. Normal CBC. Urine sent for culture Maternal Data Information Final EDVIN: 03/07/24 Gestational age: 27+4 PFSH PFSH Medical History Anxiety Home Medications sertraline 100 mg tablet 200 mg PO DAILY anxiety 09/25/21 [History Last Taken 12/10/23 21:00 100 mg] ondansetron 4 mg PO/SL PRN PRN Nausea 07/09/22 [History Last Taken 12/11/23 06:00 4] vit 43-fryx-dvoqp-dha 1 tab PO/SL DAILY 07/09/22 [History Last Taken 08/07/22 06:00] acetaminophen 500 mg tablet 1,000 mg (2 x 500 mg) PO Q6H PRN PRN Pain 1-10 Or Fever #0 tabs 08/09/22 [Rx Last Taken 12/11/23 10:00 1,000 mg] Allergy/AdvReac Type Severity Reaction Status Date / Time watermelon Allergy Mild Hives Verified 12/11/23 12:55 cheese Allergy Food Verified 12/11/23 12:55 Allergy amoxicillin AdvReac Mild Diarrhea Verified 12/11/23 12:55 Social History Smoking Status: Light Smoker (<10/day) History Elective abortions Hx Para 1 Spontaneous abortions Hx # Term Pregnancies Ectopic pregnancies Hx # Pregnancies Multiple births # of living children NST FHR Rate Baby A Baseline: 135 Variability:: Moderate Accelerations:: 15 x 15 Decelerations:: None NST Reactive:: Yes FHR Category:: Category I Uterine Activity:: quiet Assessment & Plan (1) Abdominal pain affecting : PLAN: Moderate hydronephrosis on right side. No stones present. N urinary symptoms. Appendix could not be visualized and ovary is normal. No FHR abnormalities . No contractions. Patient requested discharge while final u/s was pending. Appointment scheduled in office tomorrow morning for follow up (2) with 27 completed weeks gestation:
== END 2023-12-11 17:05 | disposition home or self-care (01) ==
LOC: WPOUT 12:35 → WP 12:36
PROVIDERS: Referring Provider Obstetrics & Gynecology; Visit Provider Obstetrics & Gynecology
DX: O99.891 Other specified diseases and conditions complicating pregnancy (principal); R10.9 Unspecified abdominal pain; N13.30 Unspecified hydronephrosis; Z3A.27 27 weeks gestation of pregnancy; O99.332 Smoking (tobacco) complicating pregnancy, second trimester; F17.210 Nicotine dependence, cigarettes, uncomplicated; O99.342 Other mental disorders complicating pregnancy, second trimester; F41.9 Anxiety disorder, unspecified
CPT/HCPCS: 36415; 59025; 59050; 76705; 76770; 81001; 85025; 87086; 87088; 99221; A4216; G0378

== ENCOUNTER 2024-02-25 08:24 | Outpatient (CLI) | payer MEDICAID, SELFPAY ==
--- NOTE | 2024-02-25 12:21 | OB.TRI.NOTE ---
HPI - General General Date of Service: 02/25/24 HPI Narrative JAIDEN POOL, is a 33 F who presents with ctxs. Maternal Data Information Final EDVIN: 03/07/24 Gestational age: 38&3 PFSH PFSH Medical History Anxiety Home Medications ?Medication ?Instructions ?Recorded ?Last Taken ?Type ondansetron 4 mg PO/SL PRN PRN Nausea 07/09/22 02/23/24 10:00 History 4 MG vit 15-bmoi-aagtp-dha 1 tab PO/SL DAILY 07/09/22 08/07/22 06:00 History acetaminophen 500 mg tablet 1,000 mg (2 x 500 mg) PO Q6H PRN 08/09/22 12/11/23 10:00 Rx PRN Pain 1-10 Or Fever #0 tabs 1,000 mg escitalopram oxalate 10 mg tablet 10 mg PO DAILY 02/25/24 02/24/24 10:00 History (Lexapro) 10 mg hydroxyzine pamoate 25 mg capsule mg 02/25/24 02/24/24 10:00 History 25 mg Allergy/AdvReac Type Severity Reaction Status Date / Time watermelon Allergy Mild Hives Verified 02/25/24 10:15 cheese Allergy Food Verified 02/25/24 10:15 Allergy amoxicillin AdvReac Mild Diarrhea Verified 02/25/24 10:15 Social History Smoking Status: Light Smoker (<10/day) History Elective abortions Hx Para 1 Spontaneous abortions Hx # Term Pregnancies Ectopic pregnancies Hx # Pregnancies Multiple births # of living children NST FHR Rate Baby A Baseline: 125 Variability:: Moderate Accelerations:: 15 x 15 Decelerations:: Variable Uterine Activity:: Irregular Assessment & Plan (1) False labor: PLAN: Reactive NST
== END 2024-02-25 11:34 | disposition home or self-care (01) ==
LOC: WPOUT 08:33 → WP 09:09
PROVIDERS: Referring Provider Obstetrics & Gynecology; Visit Provider Obstetrics & Gynecology
DX: O47.9 False labor, unspecified (principal); O99.330 Smoking (tobacco) complicating pregnancy, unspecified trimester; F17.200 Nicotine dependence, unspecified, uncomplicated; Z3A.00 Weeks of gestation of pregnancy not specified
CPT/HCPCS: 59025; 59050 ×2; G0378 ×2; 99221

== ENCOUNTER 2024-02-26 21:47 | Inpatient (IN) | payer MEDICAID, SELFPAY ==
[2024-02-26] VITALS (21 sets, daily range): BP systolic 122–173; BP diastolic 63–100; PULSE 47–96; RESP 16–18; TEMP 36.6–36.8; O2SAT 95–99; BMI 31.9
[2024-02-26] MEDS: Lactated Ringers 1,000 ML 999 ML IV (21:50)
--- NOTE | 2024-02-26 21:50 | PCM.HP.OB ---
HPI - General General Date of Admission: 02/26/24 HPI Narrative JAIDEN KELLY, is a 33 F who presents in spontaneous, active labor Maternal Data Information EDVIN Calculator Estimated Delivery Date Method Current WG Current Estimate 03/07/24 Manual 38w 4d PFSH PFSH Medical History Anxiety Home Medications ?Medication ?Instructions ?Recorded ?Last Taken ?Type ondansetron 4 mg PO/SL PRN PRN Nausea 07/09/22 02/23/24 10:00 History 4 MG acetaminophen 500 mg tablet 1,000 mg (2 x 500 mg) PO Q6H PRN 08/09/22 12/11/23 10:00 Rx PRN Pain 1-10 Or Fever #0 tabs 1,000 mg escitalopram oxalate 10 mg tablet 10 mg PO DAILY anxiety 02/25/24 02/26/24 09:00 History (Lexapro) hydroxyzine pamoate 25 mg capsule 25 mg anxiety 02/25/24 02/26/24 09:00 History Allergy/AdvReac Type Severity Reaction Status Date / Time watermelon Allergy Mild Hives Verified 02/26/24 21:51 cheese Allergy Food Verified 02/26/24 21:51 Allergy amoxicillin AdvReac Mild Diarrhea Verified 02/26/24 21:51 Social History Smoking Status: Light Smoker (<10/day) History Elective abortions Hx Para 1 Spontaneous abortions Hx # Term Pregnancies Ectopic pregnancies Hx # Pregnancies Multiple births # of living children ROS Eyes Eyes: Denies blurry vision, change in vision or spots in vision ENT HEENT: Denies dizziness or headache(s) Cardiovascular Cardiovascular: Denies abdominal pain, chest pain or dyspnea Respiratory/Chest Respiratory/Chest: Denies cough, dyspnea, shortness of breath at rest or shortness of breath with exertion Gastrointestinal Gastrointestinal: Denies abdominal pain, diarrhea or vomiting Genitourinary Genitourinary: Denies change in urinary stream, difficulty urinating or dysuria Musculoskeletal Musculoskeletal: Reports none Integumentary Integumentary: Denies rash Neurologic Neurologic: Denies dizziness, headache(s), memory loss or weakness Psychiatric Psychiatric: Reports none Vital Signs Vital Signs Vital Signs: Weight Weight: 199 lb Body Mass Index (BMI) 31.9 Physical Exam Const alert and no apparent distress General Appearance: cooperative and comfortable Exam Limitations: no limitations HEENT normocephalic Eyes General Eye: normal appearance of both eyes Neck full ROM General: normal visual inspection Chest Chest: symmetrical chest wall rise Resp normal respiratory effort and normal air movement Effort and Inspection: symmetric chest movement Auscultation: clear to auscultation bilaterally Cardio regular rate and regular rhythm GI normal to inspection, nondistended, normoactive bowel sounds Manual OB Exam: dilated 7-8, effaced 80 and station 0 Back/Spine normal ROM Extremity full ROM and no calf tenderness General Extremity: normal exam except as noted Skin no rashes or lesions noted Neuro CN's II-XII intact bilaterally Psych mental status grossly normal Labs Labs Labs: Blood Type O POSITIVE Antibody Screen NEGATIVE Hct 37.1 % (37-47) Hgb 13.1 g/dL (12.0-15.0) Rhogam given: No GBS negative Assessment & Plan (1) Tobacco use complicating : (2) Anxiety: (3) Anxiety and depression: (4) Spontaneous onset of labor: (5) Active labor at term: (6) 38 weeks gestation of : PLAN: Plan CE 7-8cm 80/0 Admit to labor and delivery GBS negative Routine labs Pain medications/epidural when indicated Anticipate Dr. Clayton notified of admission and is collaborating physician
[2024-02-26 22:07] LABS: Absolute Lymphocyte Count 1.32 X10^3/uL (0.83-4.51); Basophil# 0.04 X10^3/uL; Basophil% 0.3 % (0-1); Eosinophil# 0.02 X10^3/uL; Eosinophils% 0.1 % (0-5); Hematocrit 37.7 % (37-47); Hemoglobin 13.1 g/dL (12.0-15.0); Lymphocyte # 1.32 X10^3/ul (0.83-4.51); Lymphocyte % 9.1 % (19-41); Mean Corp Hgb Conc 34.7 g/dL (32-36); Mean Corpuscular Hgb 30.9 pg (27.0-32.0); Mean Corpuscular Volume 88.9 fL (81-99); Mean Platelet Vol. 9.3 fl (6.2-12.0); Monocyte# 0.89 X10^3/uL; Monocyte% 6.2 % (0-10); NRBC Flagged by Analyzer 0 % (0-5); Neutrophil # 12.04 X10^3/uL (2.7-7.7); Neutrophil % 83.5 % (47-70); Platelet Count 202 K/mm3 (150-450); RBC Distribution Width CV 13.2 % (11.6-14.6); RBC Distribution Width SD 43.3 fl (35.1-43.9); Red Blood Count 4.24 M/mm3 (4.2-5.4); White Blood Count 14.4 K/mm3 (4.4-11.0)
[2024-02-26] MEDS: Lactated Ringers 1,000 ML 200 ML IV (22:51)
[2024-02-26] MEDS: fentaNYL-bupivacaine (epidural) 100 ML BAG EPIDURAL (22:53)
[2024-02-26] MEDS: Oxytocin 15 Units/NS 250ml 15 UNITS/250 ML IV.SOLN 334 UNITS IV (23:23)
--- NOTE | 2024-02-26 23:49 | OP.PCM_ITS ---
Assessment & Plan (1) Precipitous delivery: (2) (spontaneous vaginal delivery): (3) True knot in cord: (4) Tobacco use complicating : (5) Anxiety: (6) Anxiety and depression: (7) Laceration, obstetrical, first degree: Maternal Data Information EDVIN Calculator Estimated Delivery Date Method Current WG Current Estimate 03/07/24 Manual 38w 5d Vaginal Delivery Maternal Presentation Maternal Presentation: Active Labor and Spontaneous Rupture of Membranes Maternal Presentation: that presents in spontaneous, active labor. Operative Information Date of Procedure: 02/26/24 Pre-Operative Diagnosis: Term gestation, Spontaneous onset of labor, SROM Post-Operative Diagnosis: , live male Surgery / Procedure Performed: Spontaneous Vaginal Delivery Type of Anesthesia: Epidural Estimated Blood Loss: 150 Time of Delivery: 23:19 Findings Description of Procedure: Patient quickly progressed to complete dilation. Comfortable with epidural but feeling pressure. With minimal maternal effort, head delivered followed by posterior shoulder and remainder of body without downward traction. Infant placed on maternal abdomen and was attended to by nursing. FOB assisted with delivery of infant body and placing infant on maternal abdomen. 's color was pink but poor tone. 3 vessel cord clamped and cut and infant handed off to nursing. True knot noted in cord. Cord blood collected. Pitocin IV started for active management of the third stage of labor. Placenta delivered spontaneously and intact. Fundus firm 2 below U. Small first degree laceration repaired and hemostasis obtained. EBL 150 cc . [employer] Work[employer] currently at [facility]. Presentation: Vertex Amniotic Membrane Rupture Type: Spontaneous Time of Membrane Rupture: 2308 Amniotic Fluid Description: Clear Placental Delivery Description: Spontaneous Placenta Disposition: [facility] Cord Vessel Description: 3 Vessels (True Knot in cord) Cord Entanglement: None A Gender: Male (1 minute): 7 (5 minute): 7 Delayed Cord Clamping: No Post Vaginal Delivery Medications Given After Delivery: IV Pitocin Episiotomy Description: None Laceration: 1st degree Complication Complications: None
[2024-02-27] VITALS (18 sets, daily range): BP systolic 101–132; BP diastolic 59–77; PULSE 57–106; RESP 16; TEMP 36.4–36.8; O2SAT 88–99
[2024-02-27] MEDS: Oxytocin 15 Units/NS 250ml 15 UNITS/250 ML IV.SOLN 83 UNITS IV (00:10)
[2024-02-27] MEDS: Naproxen 500 MG Tablet PO ×2 (03:22→12:29)
[2024-02-27] MEDS: Acetaminophen 500 MG Tablet 1000 MG PO ×2 (08:55→23:49)
--- NOTE | 2024-02-27 11:14 | PCM.PN.OB ---
Subjective Subjective Doing well per patient and nursing staff. Ambulating and taking PO without difficulty. Voiding and passing flatus. Pain controlled. Bottlefeeding. Denies headache, visual changes, chest pain, shortness of breath, leg pain or increased bleeding. Lochia normal. Objective Data Objective Data Vital Signs: Vital Signs Temp Pulse Resp BP Pulse Ox O2 Del Method 98.3 F 67 16 101/65 97 Room Air 02/27/24 10:17 02/27/24 10:17 02/27/24 10:17 02/27/24 10:17 02/27/24 10:17 02/27/24 10:17 Oxygen Delivery Method Room Air Weight: 199 lb Body Mass Index (BMI) 31.9 Intake & Output: Intake and Output for Last 24 Hours 02/25/24 02/26/24 02/27/24 23:59 23:59 23:59 Intake Total 1106.67 / 1106.67 500 / 500 Output Total 350 / 350 Balance 756.67 / 756.67 500 / 500 Lab / Micro Data 02/26/24 21:50 Labs: Laboratory Results - last 24 hr 02/26/24 21:50: WBC 14.4 H, RBC 4.24, Hgb 13.1, Hct 37.7, MCV 88.9, MCH 30.9, MCHC 34.7, RDW Std Deviation 43.3, RDW Coeff of Ty 13.2, Plt Count 202, MPV 9.3, Immature Gran % (Auto) 0.800, Neut % (Auto) 83.5 H, Lymph % (Auto) 9.1 L, [place] % (Auto) 6.2, Eos % (Auto) 0.1, Baso % (Auto) 0.3, Absolute Neuts (auto) 12.0 H, Absolute Lymphs (auto) 1.32, Nucleated RBC % 0, Syphilis Total Ab Cancelled, Blood Type O POSITIVE, Antibody Screen NEGATIVE ROS Constitutional Constitutional: Reports systems reviewed and no addt'l complaints, except as documented; Denies headache(s) Eyes Eyes: Denies acute decrease in peripheral vision, blurry vision or change in vision ENT HEENT: Reports systems reviewed and no addt'l complaints, except as documented Cardiovascular Cardiovascular: Denies chest pain or dizziness Respiratory/Chest Respiratory/Chest: Denies cough, dyspnea, dyspnea on exertion, shortness of breath at rest or shortness of breath with exertion Gastrointestinal Gastrointestinal: Denies abdominal pain, diarrhea, nausea or vomiting Genitourinary Genitourinary: Denies abdominal discomfort Musculoskeletal Musculoskeletal: Denies limited range of motion Integumentary Integumentary: Reports systems reviewed and no addt'l complaints, except as documented Neurologic Neurologic: Reports systems reviewed and no addt'l complaints, except as documented Psychiatric Psychiatric: Reports systems reviewed and no addt'l complaints, except as documented Endocrine Endocrinology: Reports systems reviewed and no addt'l complaints, except as documented Hematologic/Lymphatic Hematologic/Lymphatic: Reports systems reviewed and no addt'l complaints, except as documented Allergic/Immunologic Allergic/Immunologic: Reports systems reviewed and no addt'l complaints, except as documented Physical Exam Const alert and oriented x3 General Appearance: cooperative Orientation / Consciousness: awake, oriented to person, oriented to place and oriented to time Exam Limitations: no limitations HEENT normocephalic Head and Scalp: normal to inspection, normocephalic and atraumatic Face and Sinus: normal facial exam Eyes General Eye: normal appearance of both eyes Neck full ROM Chest Chest: symmetrical chest wall rise Resp normal respiratory effort and normal air movement Auscultation: clear to auscultation bilaterally Cardio regular rate, regular rhythm, S1 normal heart sound, S2 normal heart sound, no murmurs, no rub, no gallops and no clicks GI normal to inspection, nondistended, normoactive bowel sounds and non-tender appearance of the vagina normal Bladder / Kidney Exam: no CVA tenderness Back/Spine normal ROM Extremity normal to inspection and full ROM Skin no rashes or lesions noted Neuro oriented x3, CN's II-XII intact bilaterally and moves all extremities Sensorium / Orientation: awake, alert and oriented to person Motor Exam: clonus absent Deep Tendon Reflexes: Rt Patellar (L4): 2+ and Lt Patellar (L4): 2+ Assessment & Plan (1) (spontaneous vaginal delivery): (2) Precipitous delivery: (3) Anxiety and depression: PLAN: Plan 1) PPD#1 2) Vitals stable 3) Bottle feeding 4) Pain controlled 5) D/C home tomorrow
[2024-02-27] MEDS: Escitalopram Oxalate 10 MG Tablet PO (13:49)
[2024-02-27] MEDS: hydrOXYzine PAM 25 MG Capsule PO (13:49)
[2024-02-28 02:19] VITALS: BP 124/77; PULSE 53; RESP 16; TEMP 36.7; O2SAT 98
--- NOTE | 2024-02-28 08:45 | PCM.PN.OB ---
Subjective Subjective Doing well. Pain controlled. Voiding without difficulty. Breast feeding. Lochia minimal. Objective Data Objective Data Vital Signs: Vital Signs Temp Pulse Resp BP Pulse Ox O2 Del Method 98.1 F 53 L 16 124/77 H 98 Room Air 02/28/24 02:19 02/28/24 02:19 02/28/24 02:19 02/28/24 02:19 02/28/24 02:19 02/28/24 02:19 Oxygen Delivery Method Room Air Weight: 90.265 kg Body Mass Index (BMI) 31.9 Intake & Output: Intake and Output for Last 24 Hours 02/26/24 02/27/24 02/28/24 23:59 23:59 23:59 Intake Total 1106.67 / 1106.67 500 / 500 Output Total 350 / 350 Balance 756.67 / 756.67 500 / 500 Lab / Micro Data 02/26/24 21:50 Physical Exam Const alert and no apparent distress Narrative: Fundus firm, below umbilicus. Assessment & Plan (1) (spontaneous vaginal delivery): (2) Precipitous delivery: (3) 38 weeks gestation of : PLAN: Plan Discharge home
--- NOTE | 2024-02-28 08:48 | PCM.DC.SUM ---
Providers Date of Admission: 02/26/24 Date of Discharge: 02/28/24 Primary Care Physician: Elisabeth Primary Care Phys Reason For Visit: VAGINAL DELIVERY Diagnosis Discharge Diagnosis (1) (spontaneous vaginal delivery): Status: Acute Code(s): O80 - Encounter for full-term uncomplicated delivery (2) Precipitous delivery: Status: Acute Code(s): O62.3 - Precipitate labor (3) 38 weeks gestation of : Status: Acute Code(s): Z3A.38 - 38 weeks gestation of Plan Discharge home Medications at Discharge Home Medications acetaminophen 500 mg tablet 1,000 mg (2 x 500 mg) PO Q6H PRN PRN Pain 1-10 Or Fever #0 tabs 08/09/22 escitalopram oxalate 10 mg tablet (Lexapro) 10 mg PO DAILY anxiety 02/25/24 hydroxyzine pamoate 25 mg capsule 25 mg anxiety 02/25/24 Hospital Course Operations None Procedures None Summary of Care Provided Minutes Spent on Discharge: 22 Hospital Course: Presented in active labor. Precipitous delivery without complication. Bottle feeding. Weight / BMI Weight Weight: 90.265 kg Body Mass Index (BMI) 31.9 ABG / Lab / Microbiology Data 02/26/24 21:50 D/C Instructions May resume sexual activity in: 6 weeks Please Follow Up With: Sasha Pope MD When: Follow up with our office in 1-2 and 6 weeks or as needed. [phone] Meaningful Use Info Meaningful Use Meaningful Use Diagnoses (Choose all that apply): None applicable Ischemic Stroke Statin Dosing Therapy Reference: STATIN DOSE THERAPY REFERENCE: * Patients > 75 years receive moderate or high dose statin therapy. * Patients 75 years or YOUNGER should receive HIGH intensity statin dose unless contraindicated. You will be required to document reason for non-treatment if statin daily dose does not meet guidelines. HIGH DOSE STATIN THERAPY DAILY Atorvastatin > than or = to 40 mg Rosuvastatin > than or = to 20 mg Amlodipine + Atorvastatin > than or = to 2.5/40 mg Ezetimibe + Simvastatin 10/80 mg Simvastatin 80mg Discharge Plan Admission Admit Date/Time: 02/26/24 21:47 Primary Reason for Your Visit: Labor Attending Provider: Mayra Espinal Primary Care Provider: Care Physician,No Primary Discharge Orders/Prescriptions Prescriptions: Continued acetaminophen 500 mg Tablet 1,000 mg PO Q6H PRN PRN (Reason: Pain 1-10 Or Fever) Qty: 0 0RF escitalopram oxalate [Lexapro] 10 mg tablet 10 mg PO DAILY hydroxyzine pamoate 25 mg capsule 25 mg Patient Comments: TAKE 2 CAPSULES BY MOUTH THREE TIMES DAILY NEEDED FOR ITCHING Discontinued ondansetron tablet 4 mg PO/SL PRN PRN (Reason: Nausea) Referrals / Follow Up: Care Physician,No Primary [Primary Care Provider] - Disposition Disposition (needs filled in before D/C Order can be placed): Home, Self Care
[2024-02-28 08:50] VITALS: BP 126/67; PULSE 72; RESP 16; TEMP 36.6; O2SAT 98
[2024-02-28] MEDS: hydrOXYzine PAM 25 MG Capsule PO (10:10)
[2024-02-28] MEDS: Escitalopram Oxalate 10 MG Tablet PO (10:11)
== END 2024-02-28 10:50 | disposition home or self-care (01) | DRG 560 ==
LOC: WPOUT 21:47 → WP 21:52
PROVIDERS: Admitting Provider Advanced Practice Midwife; Visit Provider Advanced Practice Midwife
DX: O62.3 Precipitate labor (principal); Z37.0 Single live birth; O99.344 Other mental disorders complicating childbirth; F17.200 Nicotine dependence, unspecified, uncomplicated; F32.A Depression, unspecified; F41.9 Anxiety disorder, unspecified; O99.334 Smoking (tobacco) complicating childbirth; O70.0 First degree perineal laceration during delivery; O69.2XX0 Labor and delivery complicated by other cord entanglement, with compression, not applicable or unspecified; Z3A.38 38 weeks gestation of pregnancy
CPT/HCPCS: 59025; 59050; 85025; 86850; 86900; 86901; 99221; J7120; G0378